=== PATIENT | male | born 1985 | race Hispanic/Latino ===

== ENCOUNTER 2016-12-05 03:31 | Emergency (ER) | payer OTHER ==
[~2016-12-05] VITALS: Ht 165.1 cm; Wt 86.4 kg
[2016-12-05 03:35] VITALS: BP 127/84; PULSE 62; RESP 26; O2SAT 97
[2016-12-05 04:34] LABS: BASOPHILS % (AUTO) 1.1 % (0-3); EOSINOPHILS % (AUTO) 3.9 % (0-5); MONOCYTES % (AUTO) 7.5 % (4-12); Mean Corpuscular Volume 95.3 fL (81-100); NEUTROPHILS % (AUTO) 40.4 % (40-74); Platelet Count 248 bil/L (150-400)
[2016-12-05 04:55] LABS: Magnesium 2.7 mg/dL (1.6-2.6)
--- NOTE | 2016-12-05 06:04 | ED.REPORT ---
HPI-General Illness Date of Service December 05, 2016 ED Provider: Tawanda Lau DO The patient is a 31 year old male with history of substance abuse and alcohol abuse, who was brought to the emergency department by EMS after [place] The patient is intoxicated and unable to provide any history at this time. Nursing Notes Stated Complaint: INTOXICATION Chief Complaint: Substance Abuse Nursing Notes Reviewed: Yes Allergies: Coded Allergies: No Known Allergies (Unverified Allergy, Unknown, 12/05/16) No Active Prescriptions or Reported Meds General Time Seen by MD: 06:03 Chief Complaint Other (intoxication) Hx Obtained From: EMS Unable to Obtain Hx: Patient condition, Intoxicated Arrived By: Ambulance Sudden in Onset?: No Onset Occurred: Onset unknown Symptom Duration: Duration unknown Recent Healthcare: No recent hospitalization Similar Sx Previous: Yes Past Medical History Past Medical History Substance abuse Past Surgical History Left 4th finger surgery Family History Reviewed, not relevant Smoking History Current Every Day Smoker Social History Alcohol Use: 1-3 per week Drug Use: Cocaine, Meth Other Social History: Local resident Occupation lives by self Ambulatory Status Independent Review of Systems Unable to Obtain ROS Patient condition, Intoxicated Physical Exam Vital Signs Vital Signs Date Time Temp Pulse Resp B/P Pulse Ox O2 Delivery O2 Flow Rate FiO2 12/05/16 09:52 36.3 94 18 117/79 99 Room Air 12/05/16 03:35 35.1 62 26 127/84 97 Room Air Initial VS: Reviewed Head / Eyes: Atraumatic, Normocephalic ENT: Mucous membranes moist, Conjunctiva normal Neck: Supple Respiratory: Breath sounds normal, Clear to auscultation, No respiratory distress Cardiovascular: Regular rate & rhythm, Heart sounds normal, Intact distal pulses Abdomen / GI: Soft, Non-tender, No guarding, No rebound, No distention Extremities: No swelling, No tenderness Skin: Warm, Dry Alertness: Positive: Somnolent (but arousable) Mental Status: Positive: Somnolent (but arousable) Psychiatric: Not suicidal, Not homicidal Interpretation & Diagnostics Interpretation & Diagnostics: Urine drug screen: positive for methamphetamines and cocaine Lab Results Interpretation Result Diagram: 12/05/16 0415 12/05/16 0415 Test 12/05/16 04:15 12/05/16 06:15 White Blood Count 6.1th/mm3 (3.8-10.1) Red Blood Count 5.09mil/mm3 (4.40-5.80) Hemoglobin 16.8g/dL (13.8-17.2) Hematocrit 48.5% (41.0-50.0) Mean Corpuscular Volume 95.3fL (81-100) Mean Corpuscular Hemoglobin 33.0pg (27.0-35.0) Mean Corpuscular Hemoglobin Concent 34.6% (32.0-37.0) Red Cell Distribution Width 12.4% (12.3-15.4) Platelet Count 248bil/L (150-400) Neutrophils (%) (Auto) 40.4% (40-74) Lymphocytes (%) (Auto) 46.6% (14-46) Monocytes (%) (Auto) 7.5% (4-12) Eosinophils (%) (Auto) 3.9% (0-5) Basophils (%) (Auto) 1.1% (0-3) Sodium Level 139mEq/L (134-144) Potassium Level 3.8mEq/L (3.5-5.2) Chloride Level 98mEq/L (97-108) Carbon Dioxide Level 28mmol/L (18-29) Blood Urea Nitrogen 7mg/dL (6-20) Creatinine 1.19mg/dL (0.76-1.27) Estimat Glomerular Filtration Rate 77mL/min (>59) Glucose Level 112mg/dL (60-99) Calcium Level 9.1mg/dL (8.5-10.1) Magnesium Level 2.7mg/dL (1.6-2.6) Total Bilirubin 0.3mg/dL (0.0-1.2) Aspartate Amino Transf (AST/SGOT) 81U/L (0-50) Alanine Aminotransferase (ALT/SGPT) 68U/L (0-44) Alkaline Phosphatase 82U/L (25-150) Total Protein 6.9g/dL (6.4-8.4) Albumin 4.0g/dL (3.4-5.0) Alcohols 336mg/dL (0-10) Urine Color Straw (YELLOW) Urine Appearance Clear (CLEAR,HAZY) Urine pH 6.0 (5.0-8.0) Urine Specific [place] 1.005 (1.003-1.035) Urine Protein Negativemg/dL (NEG,TRACE) Urine Glucose (UA) Negativemg/dL (NEGATIVE) Urine Ketones Negativemg/dL (NEGATIVE) Urine Occult Blood Trace (NEGATIVE) Urine Nitrite Negative (NEGATIVE) Urine Bilirubin Negative (NEGATIVE) Urine Urobilinogen Normalmg/dL (NORMAL) Urine Leukocyte Esterase Negative (NEGATIVE) Urine RBC 0-2/hpf (0-2) Urine WBC 0-5/hpf (0-5) Urine Epithelial Cells Occasional/hpf (NONE-MOD) Urine Crystals None seen (NONE SEEN) Urine Bacteria None/hpf (NONE-FEW) Urine Hyaline Casts None/lpf (NONE) Urine Granular Casts None seen (NONE SEEN) Urine Waxy Casts None seen (NONE SEEN) Urine Red Blood Cell Casts None seen (NONE SEEN) Urine White Blood Cell Casts None seen (NONE SEEN) Urine Mucus None seen (None Seen) Urine Trichomonas None seen (NONE SEEN) Urine Yeast None (NONE SEEN) Urinalysis Comment None Urine Culture Reflexed Not indicated CT Head Interpretation No acute intracranial findings Study: Head CT no contrast Interpretation / Wet Read by: Interpret - Radiologist Re-Eval/Medical Decision Med Decision/Clinical Course Patient arrived intoxicated. He has metabolized. While he is not strictly legally sober, he is clinically sober. He is awake and alert appropriate to make his own medical decisions, steady on his feet. He endorses safety denies feeling suicidal. He has a plan to walk to his uncle's house which is a few blocks away. This seems reasonable. Return and follow-up precautions are given. Source of Hx: Old records, EMS Time of Eval: 06:45 Re-Evaluation/Progress Note: Patient is stable, sleeping comfortably in bed. Normal respirations grossly. Patient awakens with minor stimulation, is able to say his name however is somnolent. Will continue to allow this patient to metabolize and continue to reassess. Time of Eval: 09:48 Re-Evaluation/Progress Note: The patient is awake and able to answer questions now. He drinks alcohol everyday. He is currently homeless. His uncle is able to come and get him. Will road test prior to discharge. Time of Eval: 10:00 Re-Evaluation/Progress Note: The patient is now awake, alert, and ambulatory. Will discharge home. Denies suicidal ideations Counseled Regarding: Diagnosis, Lab results, Need for follow-up, When/why to return to ED Discharge & Departure Primary Impression: Polysubstance abuse Disposition: Home Discharge Condition All VS Reviewed: Yes Condition: Stable Additional Instructions: Avoid drug use and excessive alcohol use. Follow-up with a primary care doctor as needed for any concerns. Return to the ER as needed for any emergent medical conditions. Referrals: NOPCP (PCP) Scribe Attestation Portions of this note were transcribed by Kiana Gibbs. I, Dr. Lau personally performed the history, physical exam and medical decision-making; I reviewed and confirmed the accuracy of the information in the transcribed note. Signed by: Wong Elizalde, 12/05/2016 at 1100. Tawanda Lau DO December 05, 2016 06:04 Kiana Gibbs December 05, 2016 06:17
[2016-12-05 06:23] LABS: APPEARANCE,URINE CLEAR (CLEAR,HAZY); COLOR,URINE STRAW (YELLOW); OCCULT BLOOD,URINE TRACE (NEGATIVE); UROBILINOGEN,URINE NORMAL (NORMAL)
--- NOTE | 2016-12-05 09:29 | DRSVH ---
PROCEDURE: CT BRAIN WITHOUT CONTRAST ([id number]) INDICATIONS: altered ms TECHNIQUE: Noncontrast 4.5 mm thick angled axial sections acquired from the foramen magnum to the vertex, with c oronal reformats. COMPARISON: CT brain 07/31/2009, 07/30/2009, 02/28/2007 FINDINGS: Preliminary report by packaging engineer radiology Image quality: Excellent. CSF spaces: Basal cisterns are patent. No extra-axial fluid collections. Ventricles are normal in size and shape. Brain: No midline shift. No intracranial masses or hemorrhage. Mcintyre-white matter interface is norm al. Skull and face: Calvarium and visualized facial bones are intact, without suspicious lesions. Sinuses: Visualized sinuses and mastoids are clear. IMPRESSION: No acute intracranial abnormality. Findings are concordant with the preliminary report Dictated by: Brandt Silva M.D. on 12/05/2016 at 9:26 Approved by: Brandt Silva M.D. on 12/05/2016 at 9:27
[2016-12-05 09:52] VITALS: BP 117/79; PULSE 94; RESP 18; O2SAT 99
== END 2016-12-05 10:35 | disposition home or self-care (01) ==
LOC: EDBD 03:31 → SED 03:31 → EDUNIT# 03:31 → SED 10:35
DX: F19.10 Other psychoactive substance abuse, uncomplicated (principal); F17.200 Nicotine dependence, unspecified, uncomplicated
CPT/HCPCS: 36415; 70450; 80053; 81000; 81002; 82075; 83735; 85025; 99284; G0480